=== PATIENT | male | born 1990 | race African-American/Black ===

== ENCOUNTER 2023-09-03 17:28 | Emergency (ER) | payer OTHER, SELFPAY ==
[2023-09-03 17:45] VITALS: BP 140/90; PULSE 87; RESP 16; TEMP 36.8; O2SAT 98
--- NOTE | 2023-09-03 18:43 | ED.ABDPAIN ---
HPI - Abdominal Pain General Chief Complaint: Abdominal Pain Stated Complaint: stomach pains Source: patient Mode of arrival: ambulatory Limitations: no limitations History of Present Illness HPI narrative: Patient presents for evaluation of abdominal pain. Symptom onset around midnight last night. His symptoms started after he ate some fast food. Pain is intermittent, occurring without an identified frequency. He cannot identify any aggravating or alleviating factors. He describes as cramping and it alternates between the right and left side of his abdomen. He rates his symptoms as 6-7/10 severity. He has associated nausea. He denies any fever, chills, change in bowel pattern, vomiting. No underlying medical problems. He missed work today and is requesting a note to excuse him from work. Review of Systems Review of Systems: CONSTITUTIONAL: Denies fever, chills, or sweats. EYES: Denies visual changes, redness, or discharge. ENT: Denies rhinorrhea, congestion, sore throat, or otalgia. CARDIOVASCULAR: Denies chest pain, palpitations, or edema. RESPIRATORY: Denies cough or dyspnea. GASTROINTESTINAL: Reports abdominal pain and nausea. Denies vomiting and diarrhea. GENITOURINARY: Denies dysuria or hematuria. SKIN: Denies rash or itching. MUSCULOSKELETAL: Denies back pain, joint pain, or myalgia. NEUROLOGIC: Denies headache, numbness, dizziness, or weakness. PSYCHIATRIC: Denies anxiety or depression. [facility] Past Medical History Medical History No pertinent past medical history Surgical History Surgical History No pertinent past surgical history Family History Family History Mother Family history non-contributory Social History Social History Additional occupation/education comments: Works at [employer] Gender identity (if verbalized by the patient): Male Spiritual care concerns: No Exam Narrative: GENERAL: Well-appearing, well-nourished, and in no acute distress. HEAD: Normocephalic, atraumatic. EYES: PERRLA and EOMI. ENT: Nares clear, no rhinorrhea or epistaxis. Mucous membranes moist. Oropharynx without tonsillar hypertrophy exudate or other lesions. Bilateral TMs pearly espinal nonbulging NECK: Supple. No adenopathy or masses. No carotid bruits or JVD CHEST: Clear to auscultation. No respiratory distress. No wheezes rales or rhonchi HEART: Regular rate and rhythm. No murmur heard. Normal peripheral pulses. ABDOMEN: Soft, nondistended, normal active bowel sounds. Diffuse tenderness without rebound or guarding. EXTREMITIES: Normal range of motion. No edema. SKIN: Warm, dry, no rash. NEURO: No focal deficits. Alert and oriented x3. PSYCH: Normal mood and affect. Course Course Emergency Course: This is a 33-year-old male who presented for evaluation of abdominal pain that started at midnight. He has generalized tenderness on exam but no rebound or guarding. I recommended he go to the emergency department for further evaluation including labs and potential CT imaging. He declined. I advised that his clinical condition could worsen leading to sepsis, disability and/or . He verbalized understanding. He elected to leave [place]. I encouraged him to return at any time to help facilitate transfer or go directly to the emergency department. He verbalized understanding Level of Care: Express Care Visit Vital Signs Vital signs: Vital Signs Temperature 36.8 C 09/03/23 17:45 Pulse Rate 87 09/03/23 17:45 Respiratory Rate 16 09/03/23 17:45 Blood Pressure 140/90 09/03/23 17:45 Pulse Oximetry 98 09/03/23 17:45 Oxygen Delivery Room Air 09/03/23 17:45 Temperature 36.8 C 09/03/23 17:45 Pulse Rate 87 09/03/23 17:45 Respiratory Rat
== END 2023-09-03 18:45 | disposition left against medical advice (07) ==
PROVIDERS: Emergency Provider Nurse Practitioner
DX: R10.9 Unspecified abdominal pain (principal)
CPT/HCPCS: 99202; G0463

== ENCOUNTER 2023-12-11 19:56 | Observation (INO) | payer OTHER, SELFPAY ==
[2023-12-11] VITALS (14 sets, daily range): BP systolic 84–246; BP diastolic 44–216; PULSE 106–165; RESP 12–20; TEMP 36.8; O2SAT 94–100
--- NOTE | ~2023-12-11 | XR_ITS ---
EXAMINATION: XR chest 1V portable Exam Date/Time: 12/11/2023 20:14 CDT HISTORY: Dyspnea Comparison: None. RESULT: Lines, tubes, and devices: None. Lungs and pleura: Ill-defined, segmental bilateral lower lung airspace opacities. Cardiomediastinal silhouette: Stable. Other: No acute osseous or upper abdominal finding. IMPRESSION: Bibasilar subsegmental airspace opacities may represent atelectasis, edema, or infection. Reviewed, dictated and finalized at location K.
[2023-12-11] MEDS: Please add drug allergy info to patient profile. 1 EACH XX (20:16)
[2023-12-11] MEDS: SODIUM CHLORIDE 0.9% IV 1,000 ML 999 ML IV CONT ×3 (20:17→22:09)
[2023-12-11] MEDS: FAMOTIDINE 20 MG/2 ML VIAL IV PUSH (20:18)
[2023-12-11] MEDS: diphenhydrAMINE HCl INJ 50 MG/ML VIAL IV PUSH (20:18)
[2023-12-11] MEDS: methylPREDNISolone SOD SUCC 125 MG VIAL IV PUSH (20:18)
--- NOTE | 2023-12-11 20:18 | ED.GENADULT ---
HPI - General Adult General Chief complaint: Allergic Reaction <Harvinder Bassett MD - Last Filed: 12/11/23 21:51> Stated complaint: ALLERGIC REACTION FROM INSECT STINGS <Harvinder Bassett MD - Last Filed: 12/11/23 21:51> Time Seen by Provider: 12/11/23 20:00 <Harvinder Bassett MD - Last Filed: 12/11/23 21:51> History of Present Illness HPI narrative: Patient 33-year-old gentleman who presents emergency department chief complaint of bee sting. Patient apparently had multiple bee stings became unresponsive was given 0.5 at the IM and then another 0.5 mg IV by EMS patient proceeded to wake up and reports that he still felt short of breath the patient denies angioedema reports that he feels very tired <Harvinder Bassett MD - Last Filed: 12/11/23 21:51> Related Data Allergies/adverse reactions: Allergies Allergy/AdvReac Type Severity Reaction Status Date / Time bee venom protein (honey bee) Allergy Severe angioedema Verified 12/11/23 20:08 [bees] <Harvinder Bassett MD - Last Filed: 12/11/23 21:51> Review of Systems Review of Systems: A 10 system review of systems was completed on the patient and is negative except for what is stated in the HPI. Nursing and ancillary documentation was reviewed. <Harvinder Bassett MD - Last Filed: 12/11/23 21:51> [facility] Past Medical History Medical History: Medical History No pertinent past medical history <Harvinder Bassett MD - Last Filed: 12/11/23 21:51> Surgical History Surgical History: Surgical History No pertinent past surgical history <Harvinder Bassett MD - Last Filed: 12/11/23 21:51> Family History Family History: Family History Mother Family history non-contributory <Harvinder Bassett MD - Last Filed: 12/11/23 21:51> Social History Social History: Social History Additional occupation/education comments: Works at [employer] Gender identity (if verbalized by the patient): Male Spiritual care concerns: No <Harvinder Bassett MD - Last Filed: 12/11/23 21:51> Exam Narrative: GENERAL: Well-appearing, well-nourished, and in no acute distress. HEAD: Normocephalic, atraumatic. EYES: PERRLA and EOMI. ENT: Nares clear, no rhinorrhea or epistaxis. Mucous membranes moist. NECK: Supple. CHEST: Clear to auscultation. No respiratory distress. HEART: Regular rate and rhythm. No murmur heard. Normal peripheral pulses. ABDOMEN: Soft, nontender, nondistended, normal active bowel sounds. EXTREMITIES: Normal range of motion. No edema. SKIN: Warm, dry, no rash. NEURO: No focal deficits. Alert and oriented x3. PSYCH: Normal mood and affect. <Harvinder Bassett MD - Last Filed: 12/11/23 21:51> Course Course Emergency Course: [facility] 0315: Patient signed out to me pending 4 hours of monitoring and discharge. On re-evaluation patient was in atrial fibrillation with rapid ventricular response with soft blood pressures. Dr. Hirsch consulted. Patient given IV fluids and diltiazem with improvement in rate to 100s-110s. However patient is still in AFib. AFib is likely due to epinephrine administration. Chads Vasc 0. Given 325mg aspirin. Potassium and magnesium repleted. The patient will be placed in observation tele to ensure that his AFib resolves as the epinephrine wears off. <Shaun Holley MD - Last Filed: 12/12/23 04:00> Vital Signs Vital signs: Vital Signs Temperature 98.2 F 12/11/23 19:53 Pulse Rate 159 H 12/11/23 19:53 Respiratory Rate 19 12/11/23 19:53 Blood Pressure 100/64 12/11/23 19:53 Pulse Oximetry 96 12/11/23 19:53 Oxygen Delivery Nasal Cannula 12/11/23
[2023-12-11 20:27] LABS: Basophils Percent Auto 0.5 % (0.2-1.2); Eosinophils Absolute Auto 0.1 K/mm3 (0-0.3); Eosinophils Percent Auto 0.7 % (0-4.4); Hematocrit 48.8 % (42.0-52.0); Hemoglobin 16.1 g/dL (14.0-18.0); Immature Granulocyte Absolute 0.05 K/mm3 (0.00-0.031); Immature Granulocyte Percent A 0.6 % (0-0.5); Lymphocytes Absolute Auto 4.75 K/mm3 (0.9-3.2); Lymphocytes Percent Auto 56.5 % (18.3-44.2); Mean Corpuscular Hemoglobin 29.5 pg (26-34); Mean Corpuscular Volume 89.4 fl (80-100); Mean Platelet Volume 10.7 fl (7.4-10.4); Monocytes Absolute Auto 0.9 K/mm3 (0.1-0.6); Monocytes Percent Auto 10.2 % (2.6-8.5); Neutrophils Absolute Auto 2.7 K/mm3 (1.3-6.7); Neutrophils Percent Auto 31.5 % (45.5-73.1); Platelet Count Result 281 k/mm3 (150-375); Red Blood Count 5.46 M/mm3 (4.6-6.20); White Blood Count 8.4 K/mm3 (4.5-10.0)
[2023-12-11 20:37] LABS: Ethanol 95 mg/dL (<10)
[2023-12-11 21:10] LABS: Alanine Aminotransferase 19 U/L (6-50); Alkaline Phosphatase 85 U/L (38-126); Anion Gap 17 mmol/L (4-12); Aspartate Amino Transferase 24 U/L (17-59); Bilirubin,Total 0.4 mg/dL (0.2-1.3); Blood Urea Nitrogen 11 mg/dL (9-20); Calcium 8.4 mg/dL (8.4-10.2); Carbon Dioxide 20 mmol/L (22-30); Chloride 104 mmol/L (98-107); Estimated CRCL calculation 71 ml/min; Estimated Glomerular Filt Rate > 60; Glucose 100 mg/dL (65-110); Potassium 3.1 mmol/L (3.4-5.0); Sodium 141 mmol/L (137-145)
--- NOTE | 2023-12-11 22:43 | ECG_ITS ---
Test Date: 2023-12-11 22:54:49 Measurements Intervals [place] Rate: 152 P: 0 [place]: 0 QRS: 6 QRSD: 82 T: 33 QT: 276 QTc: 439 Interpretive Statements ATRIAL FIBRILLATION WITH RAPID VENTRICULAR RESPONSE No previous ECG available for comparison Electronically Signed On 12-12-2023 10:21:59 CDT by Madison Lugo M.D.
[2023-12-11 23:13] LABS: Add Urine Microscopic? NO; Appearance Urine Clear (Clear); Bilirubin Urine Negative (Negative); Blood Urine Negative (Negative); Color Urine Yellow (Yellow); Glucose Urine UA Negative (Negative); Ketones Urine Negative (Negative); Leukocyte Esterase Ur Negative LEU/UL (Negative); Nitrate Urine Negative (Negative); Protein Urine Negative (Negative); Specific Grav Ur 1.009 (1.001-1.035); Urobilinogen Urine 0.2 mg/dL (<2.0)
[2023-12-11 23:25] LABS: Reflex Lactic Acid Yes or No Add Lactic
[2023-12-11 23:28] LABS: Amphetamine Screen Urine Negative (Negative); Barbiturate Screen Urine Negative (Negative); Benzodiazepines Screen Urine Negative (Negative); Cannabinoid Screen Urine Negative (Negative); Cocaine Screen Urine Negative (Negative); Methadone Screen Urine Negative (Negative); Opiate Screen Urine Negative (Negative); Phencyclidine Screen Urine Negative (Negative)
[2023-12-11] MEDS: dilTIAZem HCl INJ 25 MG/5 ML VIAL 10 MG IV PUSH (23:28)
--- NOTE | 2023-12-11 23:37 | PC.NURSE ---
care and report given to ANGELA Vincent. all questions answered.
[2023-12-12] VITALS (26 sets, daily range): BP systolic 100–129; BP diastolic 77–99; PULSE 82–146; RESP 14–27; TEMP 36.4–36.5; O2SAT 97–100
[2023-12-12 00:10] LABS: Lactic Acid 2.8 mmol/L (0.7-2.0)
[2023-12-12] MEDS: ASPIRIN 81 MG CHEWABLE TABLET 324 MG PO (03:41)
--- NOTE | 2023-12-12 03:45 | PC.NURSE ---
1 L of LR hung going at 150 mls/hr. Unable to chart this administration in the MAR.
[2023-12-12] MEDS: MAGNESIUM SULF 2 GM/WATER 50ML 2 GM/50 ML BAG IVPB (04:09)
[2023-12-12] MEDS: POTASSIUM CHLORIDE 20 MEQ ER TABLET 40 MEQ PO (04:09)
[2023-12-12 05:19] LABS: Magnesium 2.5 mg/dL (1.6-2.3)
--- NOTE | 2023-12-12 05:27 | ADMGEN ---
This patient, Merlin Kerns, was admitted to IMU Room 200-01. Patient/family oriented to hospital policies and general routines including ID bracelet, bed and alarms, visiting hours, pain management, procedures, bathroom and other care routines, personal items, smoking policy, room service/diet, and visiting hours. Information on how to activate the Rapid Response Team has been discussed. Patient/Family are encouraged to report perceived risks to care and to ask questions if they do not understand what they are told or what they should do.
--- NOTE | 2023-12-12 07:54 | PM.CNCAR ---
Assessment and Plan Assessment and plan (1) Allergic reaction: Code(s): T78.40XA - Allergy, unspecified, initial encounter Status: Acute Assessment and Plan: Managed by hospitalist. (2) PAF (paroxysmal atrial fibrillation): Code(s): I48.0 - Paroxysmal atrial fibrillation Status: Acute Assessment and Plan: Probably related to epinephrine for allergic reaction. [id number] 0. Flecainide 100 mg PO x1 now. If after an hour he is still in atrial fib, will give 2nd dose. (3) Smoking: Code(s): F17.200 - Nicotine dependence, unspecified, uncomplicated Status: Acute Assessment and Plan: Counseled regarding smoking cessation. History of Present Illness History of Present Illness Consult date/time: 12/12/23 07:54 Reason For Visit: Afib Narrative: 33 yr old man presents to ER after becoming unresponsive from a bee sting. He has a history of smoking. Reports last evening he was playing outside hitting a ball. He went to retrieve a ball in a tree and was stung by a bee on his face. He had itching of his hand. He went back into house to shower and became unconscious. He step father heard his fall and he woke back up immediately and EMS was called. They administered epinephrine IM and IV, and in ER he went into rapid atrial fibrillation. Denies chest pain, sob, orthopnea, PND, edema, dizziness, palpitations. Normally he can walk miles without any problems. He smoke 1 ppd and occasional alcohol. Review of Systems Review of Systems: All systems reviewed & are unremarkable except as noted in HPI and below Constitutional: Constitutional: Reports as per HPI, Denies chills and Denies fever(s) Cardiovascular: Cardiovascular: Reports as per HPI and Denies chest pain Respiratory: Respiratory: Reports as per HPI and Denies dyspnea Gastrointestinal: Gastrointestinal: Reports as per HPI and Denies abdominal pain Genitourinary: Genitourinary: Reports as per HPI and Denies dysuria Musculoskeletal: Musculoskeletal: Reports as per HPI Neurologic: Reports as per HPI and Reports syncope PMF Past Medical History Medical History No pertinent past medical history Surgical History Surgical History No pertinent past surgical history Family History Family History Mother Family history non-contributory Social History Social History Smoking packs per day: 0.25 Smoking cigarettes per day: 5.0 Years smoked: 10 Smoking pack-years: 2.50 Smoking status: Current every day smoker Tobacco type: cigarettes and e-cigarettes/vaping Additional smoking assessment comments: pt no longer vapes Substance use: never Do You Feel Safe in your Home?: Yes Lack of Transportation: No Lack of Food: Never True Current Housing: I Have Housing Concerned About Future Housing: No Difficulty Paying Gas/Electric Bills: No Difficulty Paying for Meds: No Currently Unemployed: No Education: High School Diploma/GED Difficulty w/ Childcare or Family Care: No Additional occupation/education comments: Works at [employer] Gender identity (if verbalized by the patient): Male Spiritual care concerns: No Meds Home Medications and Allergies Home Medications Medication Instructions Recorded Confirmed Type No Home Medications 12/12/23 12/12/23 History Allergies Allergy/AdvReac Type Severity Reaction Status Date / Time bee venom protein (honey bee) Allergy Severe angioedema Verified 12/12/23 04:52 [bees] Vital Signs Vital Signs - 24 hr 12/11/23 19:53 12/11/23 20:10 12/11/23 21:29 Temperature 98.2 F Pulse Rate 159 H 132 H Respiratory Rate 19 18 Blood Pressure 100/64 87/58 L Pulse Oximetry 96 94 100 O
--- NOTE | 2023-12-12 08:29 | ECG_ITS ---
Test Date: 2023-12-12 09:29:20 Measurements Intervals [place] Rate: 81 P: 48 [place]: 167 QRS: 16 QRSD: 90 T: -20 QT: 354 QTc: 413 Interpretive Statements SINUS RHYTHM WITH SINUS ARRHYTHMIA NONSPECIFIC T-WAVE ABNORMALITY Compared to ECG 12/11/2023 22:54:49 Atrial fibrillation no longer present Electronically Signed On 12-12-2023 10:25:26 CDT by Madison Lugo M.D.
--- NOTE | 2023-12-12 08:56 | PM.SD2 ---
Same Day Admit/Disch: HPI History of Present Illness Chief complaint: Afib Narrative: Merlin Kerns is a 33 year old male with past medical history nicotine dependence who presents after a bee sting on the right 7 is face while outside playing ball. He had itching of his hands and urticaria. He then had shortness of breath. Brought to [place] [facility] via EMS and EN route was given epinephrine IM and IV per chart review. Afterwards the patient entered atrial fibrillation with rapid ventricular rate. He was placed on diltiazem with good response in his rapid rate. Chads Vasc score 0. Cardiology consulted and patient given flecainide 100 mg p.o. x1. PMFSH Past Medical History Medical History No pertinent past medical history Surgical History Surgical History No pertinent past surgical history Family History Family History Mother Family history non-contributory Social History Social History Smoking packs per day: 0.25 Smoking cigarettes per day: 5.0 Years smoked: 10 Smoking pack-years: 2.50 Smoking status: Current every day smoker Tobacco type: cigarettes and e-cigarettes/vaping Additional smoking assessment comments: pt no longer vapes Substance use: never Do You Feel Safe in your Home?: Yes Lack of Transportation: No Lack of Food: Never True Current Housing: I Have Housing Concerned About Future Housing: No Difficulty Paying Gas/Electric Bills: No Difficulty Paying for Meds: No Currently Unemployed: No Education: High School Diploma/GED Difficulty w/ Childcare or Family Care: No Additional occupation/education comments: Works at [employer] Gender identity (if verbalized by the patient): Male Spiritual care concerns: No Same Day Admit/Disch: Med Pre-admit Medications Home Medications Medication Instructions Recorded Confirmed Type epinephrine 0.3 mg/0.3 mL 0.3 mg (0.3 mL) IM ONCE #2 ea 12/12/23 Rx injection, auto-injector (EpiPen) Review of Systems Review of Systems All systems reviewed & are unremarkable except as noted in HPI and below (Subjective) Exam Const: General: cooperative and no acute distress Resp: Effort & Inspection: normal respiratory effort Auscultation: clear to auscultation bilaterally Cardio: Rate: regular rate Rhythm: regular rhythm Heart sounds: S1 normal heart sound present and S2 normal heart sound present GI: GI Palp: No abdominal tenderness Auscultation: normal bowel sounds DS: Data Data Completed and Pending Labs on day of discharge: Labs from last 24 hours 12/12/23 12/11/23 12/11/23 04:50 23:50 23:05 WBC RBC Hgb Hct MCV MCH MCHC RDW Plt Count MPV Immature Gran % (Auto) Neut % (Auto) Lymph % (Auto) Hall % (Auto) Eos % (Auto) Baso % (Auto) Lymph # (Auto) Hall # (Auto) Eos # (Auto) Baso # (Auto) Abs Immat Gran (auto) Absolute Neuts (auto) Absolute Nucleated RBC Nucleated RBC % Sodium Potassium Chloride Carbon Dioxide Anion Gap BUN Creatinine Estim Creat Clear Calc Estimated GFR Glucose Lactic Acid 2.8 H Calcium Magnesium 2.5 H Total Bilirubin AST ALT Alkaline Phosphatase Total Protein Albumin Urine Color Yellow Urine Appearance Clear Urine pH 6.0 Ur Specific [place] 1.009 Urine Protein Negative Urine Glucose (UA) Negative Urine Ketones Negative Ur Blood (Man) Negative Urine Nitrate Negative Urine Bilirubin Negative Urine Urobilinogen 0.2 Leukocyte Esterase Rfl Negative Urine Opiates Screen Negative Urine Methadone Screen Negative Ur Barbiturates Screen Negative Ur Phencyc
== END 2023-12-12 10:28 | disposition home or self-care (01) ==
LOC: ANHED 21:47 → ANHIMU 12-12 04:52
PROVIDERS: Emergency Medicine; Admitting Provider Internal Medicine; Emergency Provider Emergency Medicine; Visit Provider General Practice
DX: T63.441A Toxic effect of venom of bees, accidental (unintentional), initial encounter (principal); T78.40XA Allergy, unspecified, initial encounter; R06.02 Shortness of breath; I48.0 Paroxysmal atrial fibrillation; F17.210 Nicotine dependence, cigarettes, uncomplicated
CPT/HCPCS: 36415; 71045; 80053; 80307; 81003; 83605; 83735; 85025; 87040; 93005; 96361; 96365; 96374; 96375; 99285; A9270; G0378; J1200; J2919; J3475; J7030